=== PATIENT | male | born 1945 | race Caucasian/White ===

== ENCOUNTER 2019-02-01 10:22 | Inpatient (IN) | payer MEDICARE, BC, OTHER ==
--- NOTE | 2019-02-01 10:39 | ED ---
Shortness of Breath - HPI Summary HPI Summary: 74 year-old male with a recent admission for bronchitis/bronchial pneumonia on 6 L oxygen, who presents with continued dyspnea increased oxygen demands. He woke up today with fever at 101.2 F. Patient reports increased pulse (normal is 50-60, pulse was noted to be at 90), and nonproductive cough. Per review of records, patient admitted to the floor, had an echo showing an EF of 60-65% with grade 1 diastolic dysfunction. Was discharged home on 6 L of oxygen with an O2 sat around 86%. Patient discharged on cefuroxime BID. He had negative strep pneumo antigen, Legionella, C. difficile. And no growth on his blood cultures 3 days. - History of Current Complaint Chief Complaint: EDShortnessOfBreath Time Seen by Provider: 02/01/19 10:29 Hx Obtained From: Patient, Medical Records Onset/Duration: Lasting Days - Since yesterday, Still Present - Since being discharged yesterday Current Severity: Mild Dyspnea At: Rest Aggravating Factors: Nothing Alleviating Factors: Nothing Associated Signs & Symptoms: Cough (Nonproductive), Fever - Allergy/Home Medications Allergies/Adverse Reactions: Allergies Allergy/AdvReac Type Severity Reaction Status Date / Time asparagus Allergy Hives Verified 01/28/19 10:19 PMH/Surg Hx/FS Hx/Imm Hx Endocrine/Hematology History: Reports: Hx Diabetes - IDDM Cardiovascular History: Reports: Hx Coronary Artery Disease, Hx Hypercholesterolemia, Hx Hypertension Respiratory History: Reports: Hx Sleep Apnea - HAS NOT BEEN FORMALLY DIAGNOSED- SAYS HE HAS IT Denies: Hx Chronic Obstructive Pulmonary Disease (COPD) GI History: Reports: Hx Ulcer History: Reports: Hx Chronic Renal Failure, Hx Kidney Stones - HISTORY OF MULTIPLE Denies: Hx Dialysis Musculoskeletal History: Reports: Hx Arthritis - KNEES Sensory History: Reports: Hx Contacts or Glasses Denies: Hx Hearing Aid Opthamlomology History: Reports: Hx Contacts or Glasses Neurological History: Reports: Other Neuro Impairments/Disorders - neuropathy in feet Denies: Hx Dementia, Hx Seizures - Cancer History Cancer Type, Location and Year: non-hodgkin's lymphoma (remission) - Surgical History Surgery Procedure, Year, and Place: KIDNEY STONE X 2- [place]RIPSY- [place]- 2014. STENT- [facility]-X 2 [facility]-2014. TURP-[facility]-2014. ORCHIECTOMY - [facility].-2014. KNEE SURGERY-[facility]- [place] Hx Anesthesia Reactions: No - Immunization History Date of Tetanus Vaccine: PT STATES UNSURE Date of Influenza Vaccine: NONE Infectious Disease History: No Infectious Disease History: Denies: Traveled Outside the [place] in Last 30 Days - Family History Known Family History: Positive: Hypertension, Diabetes - Social History Alcohol Use: Rare Hx Substance Use: No Substance Use Type: Reports: None Hx Tobacco Use: Yes Smoking Status (MU): Former Smoker Amount Used/How Often: 1 PPD X 10 YEARS Have You Smoked in the Last Year: No Review of Systems Positive: Fever Positive: Shortness Of Breath, Cough - Nonproductive All Other Systems Reviewed And Are Negative: Yes Physical Exam - Summary Physical Exam Summary: Constitutional: Well-developed, obese Skin: Warm, Dry HENT: Normocephalic; Atraumatic Eyes: Conjunctiva normal Neck: Musculoskeletal ROM normal neck. (-) JVD, (-) Stridor Cardio: Rhythm regular, rate normal, Heart sounds normal; Intact distal pulses; Radial pulses are 2+ and symmetric. (-) Murmur Pulmonary/Chest wall: Increased work of breathing, bilateral rhonchi, poor air entry bilaterally. On 6 L nasal cannula Abd: Soft, (-) tenderness, (-) Distension, (-) Guarding, (-) Rebound Musculoskeletal: (-) Edema Lymph: (-) Cervical adenopathy Neuro: Alert, Oriented x3 Psych: Mood and affect Normal Triage Information Reviewed: Yes Vital Signs On Initial Exam: Initial Vitals Temp Pulse Resp BP Pulse Ox 98.9 F 65 18 147/57 89 02/01/19 10:24 02/01/19 10:24 02/01/19 10:24 02/01/19 10:24 02/01/19 10:24 Vital Signs Reviewed: Yes Diagnostics - Vital Signs Vital Signs Temp Pulse Resp BP Pulse Ox 02/01/19 10:24 98.9 F 65 18 147/57 89 - Laboratory Result Diagrams: 02/01/19 10:51 02/01/19 10:51 Lab Statement: Any lab studies that have been ordered have been reviewed, and results considered in the medical decision making process. - Radiology CXR Radiology Interpretation Completed By: Radiologist Summary of Radiographic Findings: Bronchopneumonia with interval worsening compared with the January 28, [address] Machuca has reviewed this radiology report. - EKG 1040 Cardiac Rate: NL - 63 BPM EKG Rhythm: Sinus Rhythm ST Segment: Normal Ectopy: None EKG Comparison: No Significant Change Summary of EKG Findings: An EKG at 1040 reveals normal sinus rhythm 63 BPM, nml axis, nml intervals. No STEMI. No acute changes. No change from prior taken . Re-Evaluation - Re-Evaluation First Eval Re-Evaluation Time: 11:15 Comment: Discussed results with patient. Patient agrees to be admitted to [facility]. Second Eval Re-Evaluation Time: 11:35 Comment: Patient will be treated with Cefipime and Levaquin and admitted for pneumonia Course/Dx - Course Course Of Treatment: 74 year-old male with a recent admission for bronchitis/ bronchial pneumonia on 6 L oxygen, who presents with continued dyspnea increased oxygen demands. - PE w an obese male with mild dyspnea on 6 L of oxygen satting 89%. Bilateral rhonchi. Concern for worsening pneumonia. Will check a chest x-ray as well as labs. Likely to be readmitted to hospitalist team - Diagnoses Provider Diagnoses: PNA (pneumonia), Respiratory distress, Hypoxia - Physician Notifications Discussed Care of Patient With: Dino Valenzuela Time Discussed With Above Provider: 11:13 Instructed by Provider To: Other - Discussed patient case with Dr. Valenzuela, hospitalist, who recommended proceeding with CTA chest. At 1130, discussed CXR findings with Dr. Valenzuela, who agreed to hold on the CTA chest and proceed with abx. Dr. Valenzuela accepted the patient for admission to [facility]. Discharge - Sign-Out/Discharge Documenting (check all that apply): Patient Departure - Admit Patient Received Moderate/Deep Sedation with Procedure: No - Discharge Plan Condition: Fair Disposition: ADMITTED TO [facility] - Billing Disposition and Condition Condition: FAIR Disposition: Admitted to [facility] - Attestation Statements Document Initiated by Scribe: Yes Documenting Scribe: Andrea Mejia Provider For Whom Scribe is Documenting (Include Credential): Nathanael Machuca MD Scribe Attestation: Andrea Edmondson, scribed for Nathanael Machuca MD on 02/01/19 at 1459. Scribe Documentation Reviewed: Yes Provider Attestation: The documentation as recorded by the scribe, Andrea Mejia accurately reflects the service I personally performed and the decisions made by me, Nathanael Machuca MD Status of Scribe Document: Viewed
[2019-02-01 10:59] LABS: Hematocrit 40 % (42-52); Hemoglobin 13.2 g/dL (14.0-18.0); Mean Corpuscular HGB Conc 33 g/dL (31-36); Mean Corpuscular Hemoglobin 27 pg (27-31); Mean Corpuscular Volume 81 fL (80-94); Mean Platelet Volume 8.3 fL (7.4-10.4); Platelet Count 276 10^3/uL (150-450); Red Blood Count 4.97 10^6 /uL (4.18-5.48); Red Cell Distribution Width 15 % (10-15); White Blood Count 23.6 10^3/uL (3.5-10.8)
[2019-02-01 11:01] LABS: ABS Eosinophils 0.1 10^3/ul (0-0.6); ABS Lymphocytes 0.7 10^3/ul (1.0-4.8); ABS Monocytes 0.9 10^3/ul (0-0.8); ABS Neutrophils 21.9 10^3/ul (1.5-7.7); Eosinophil % 0.2 %; Lymphocyte % 2.8 %
[2019-02-01 11:20] LABS: Albumin 3.4 g/dL (3.2-5.2); BUN/Creatinine Ratio 18.4 (8-20); EGFR African American 56.7 (>60); EGFR Non-African American 46.8 (>60); Globulin 3.4 g/dL (2-4); Potassium 4.4 mmol/L (3.5-5.0); Total Bilirubin 0.8 mg/dL (0.2-1.0); Total Protein 6.8 g/dL (6.4-8.9)
[2019-02-01 11:22] LABS: Troponin I 0.01 ng/mL (<0.04)
[2019-02-01] MEDS ORDERED: Iodixanol* (CONTRAST) 320 MG/ML 100 ML SDV IV ONE (11:24)
[2019-02-01] MEDS ORDERED: Cefepime(*) 2 GM in NS 0.9% 50 ML* 50 ML IVPB ONE (11:34)
[2019-02-01] MEDS ORDERED: Levofloxacin 750 MG IVPREMIX(* 750 MG/150 ML BAG IVPB ONE (11:34)
[2019-02-01] MEDS ORDERED: Dextrose 50% Syringe 50 ML* 25 GM/50 ML SYRINGE IV PUSH PRN (12:16)
[2019-02-01] MEDS ORDERED: Dextrose 50% VIAL 50 ml IV PUSH PRN (12:43)
[2019-02-01] MEDS ORDERED: Cefepime 2 GM in Dextrose(*) 2 GM/50 ML BAG IV SCH (13:00)
[2019-02-01] MEDS ORDERED: Insulin GLARGINE(*) 1 UNITS UNIT SUBCUT SCH (13:00)
--- NOTE | 2019-02-01 13:05 | ADMNOTE ---
Subjective Date of Service: 02/01/19 Interval History: ADMISSION HISTORY AND PHYSICAL EXAM: Allergies Allergy/AdvReac Type Severity Reaction Status Date / Time asparagus Allergy Hives Verified 01/28/19 10:19 Home Medications Medication Instructions Recorded Confirmed Type Hydrochlorothiazide TAB* 25 mg PO QAM 09/04/14 01/28/19 History [Hydrodiuril TAB*] Amlodipine Besylate [Norvasc 10 mg 10 mg PO QAM 05/25/15 01/28/19 History tab] Sodium Bicarbonate (ANTACID)* 650 mg PO SEE INSTRUCTIONS 05/25/15 01/28/19 History Allopurinol TAB* [Zyloprim 100 MG 100 mg PO BID 04/04/18 01/28/19 History TAB*] Losartan Potassium 100 mg PO DAILY 04/04/18 01/28/19 History Simvastatin TAB(NF) [Zocor 20 MG 1 - 2 tab PO DAILY 04/04/18 01/28/19 History (NF)] metFORMIN* [Glucophage 500 MG TAB 500 mg PO BID 04/04/18 01/28/19 History *] Aspirin EC TAB* [Ecotrin EC Low 81 mg PO DAILY 04/10/18 01/28/19 History Dose 81 MG*] Cholecalciferol TAB* [Vitamin D 1,000 unit PO DAILY 01/28/19 01/28/19 History TAB*] L.acidoph,Paracasei, B.lactis 1 each PO DAILY 01/28/19 01/28/19 History [Probiotic] Potassium Chlor TAB* [Klor Con ER 10 meq PO BID 01/28/19 01/28/19 History TAB 10 MEQ*] raNITIdine HCl [Ranitidine HCl] 1 tab PO DAILY 01/28/19 01/28/19 History raNITIdine HCl [Ranitidine HCl] 300 mg PO DAILY 01/28/19 01/28/19 History Insulin GLARGINE(*) [Lantus(*)] 50 units SUBCUT Q12H unit 01/30/19 Rx ceFUROXime TAB(*) [Ceftin TAB 250 500 mg PO BID #14 tab 01/30/19 Rx MG(*)] HPI: The patient was discharged from this hospital 01/30/19 with a dx of pneumonia. He required 6 L O2 by PA. He has had a dry cough persistently. No sweats or chills. Mild diarrhea, started before the first hospitalization. He received 3 doses azithromycin before his prior hospitalization without improvement. He did not improve following his recent discharge. Family History: Findings - DM, heart disease, lung cancer Social History: Findings - Lives with his who is his SDM. Smoked in his 20 's only. No alcohol abuse Past Medical History: Findings - DM, CKD, HTN, lymphoma L arm treated with local RT, GERD, gout, MO Review of Systems - Measurements Intake and Output: Intake and Output Last 24 Hours 01/30/19 01/31/19 02/01/19 02/02/19 06:59 06:59 06:59 06:59 Weight 285 lb - Review of Systems Constitutional Symptoms: Negative: Weight Gain, Weight Loss, Weakness, Fatigue, Fever, Night Sweats, Unexplained Falls, Other Dermatology: Positive: Normal HEENT: Positive: Normal Eyes: Positive: Normal Thyroid: Positive: Normal Pulmonary: Positive: Cough, Shortness of Breath, COPD Cardiology: Positive: Normal Gastroenterology: Positive: Diarrhea Genital - Urinary: Positive: Normal Genitourinary - Male: Negative: Prostatism, Erectile Dysfunction, Family Hx of Prostate Cancer, Other Endocrinology: Positive: Obesity, Diabetes Mellitus Hematologic/Lymphatic: Negative: Anemia, Easy Bruising, Hx Leukemia, Hx Lymphoma, Use of Anticoagulant, Use of Antiplatelet Drugs, Other Psychiatry: Positive: Normal Allergic/Immunologic: Negative: Hx Anaphylaxis, Hx Angioedema, Hx Environmental, Hx Seasonal, Asthma, Hx HIV, Immunocompromise, Swollen Glands LymphNodes, Other Objective Active Medications: Albuterol/Ipratropium (Duoneb (Albuterol 2.5 Mg/Ipratropium 0.5 Mg)) 1 neb INH [id number] AWAKE JANESSA Allopurinol (Zyloprim Tab*) 100 mg PO BID JANESSA Aspirin (Aspirin Ec Tab*) 81 mg PO DAILY JANESSA Cholecalciferol (Vitamin D Tab*) 1,000 units PO DAILY JANESSA Dextrose (Dextrose 50% Vial 50 Ml*) 12.5 ml IV PUSH .FOR FS < 60 - SS PRN PRN Reason: FS < 60 Enoxaparin Sodium (Lovenox(*)) 40 mg SUBCUT Q24H JANESSA Levofloxacin/Dextrose (Levaquin 750 Mg Ivpremix(*)) 750 mg in 150 mls @ 100 mls /hr IVPB ED ONCE ONE Stop: 02/01/19 13:03 Last Admin: 02/01/19 11:53 Dose: 100 mls/hr Cefepime HCl (Maxipime 2 Gm In Dextrose Duplex (*)) 2 gm in 50 mls @ 100 mls/ hr IV Q12H JANESSA Levofloxacin/Dextrose (Levaquin 750 Mg Ivpremix(*)) 750 mg in 150 mls @ 100 mls /hr IVPB Q24H JANESSA; Protocol Insulin Glargine (Lantus(*)) 40 units SUBCUT Q12H JANESSA Insulin Human Lispro (Humalog*) 0 units SUBCUT ACHS JANESSA; Protocol Non-Formulary Medication (Amlodipine Besylate [Norvasc 10 Mg Tab]) 2.5 mg PO QAM JANESSA Non-Formulary Medication (Losartan Potassium [Losartan Potassium]) 50 mg PO DAILY JANESSA Non-Formulary Medication (Ranitidine Hcl [Ranitidine Hcl]) 300 mg PO DAILY JANESSA Vital Signs - 8 hr 02/01/19 02/01/19 02/01/19 10:24 10:48 11:00 Temperature 98.9 F Pulse Rate 65 63 63 Respiratory 18 24 13 Rate Blood Pressure 147/57 131/76 (mmHg) O2 Sat by Pulse 89 90 90 Oximetry 02/01/19 02/01/19 11:18 12:00 Temperature Pulse Rate 60 58 Respiratory 20 29 Rate Blood Pressure 113/46 (mmHg) O2 Sat by Pulse 88 89 Oximetry Oxygen Devices in Use Now: Nasal Cannula Appearance: Alert, partly up on ED stretcher. In fair spirits. Looks comfortable. Eyes: No Scleral Icterus Ears/Nose/Mouth/Throat: Clear Oropharnyx, Mucous Membranes Moist Neck: NL Appearance and Movements; NL JVP, No Thyroid Enlargement, Masses Respiratory: Symmetrical Chest Expansion and Respiratory Effort, Clear to Percussion, - - Barrel-chested. Marked decreased in BS BL. Abdominal: NL Sounds; No Tenderness; No Distention, No Hepatosplenomegaly, - Lymphatic: No Cervical Adenopathy, No Axillary Adenopathy Extremities: No Edema, No Clubbing, Cyanosis, - Skin: No Rash or Ulcers, No Nodules or Sclerosis, - Neurological: Alert and Oriented x 3, NL Sensation Result Diagrams: 02/01/19 10:51 02/01/19 10:51 Assess/Plan/Problems-Billing Assessment: - Patient Problems (1) Pneumonia Current Visit: No Status: Acute Code(s): J18.9 - PNEUMONIA, UNSPECIFIED ORGANISM SNOMED Code(s): 844129876 Comment: Failed macrolide, cephalosporin. Start cefepime and levofloxacin . Blood C&S sent. Add Duoneb although not wheezing, BS very poor. Consider pulmonology consult if no improvement in next 24-48 hrs. (2) Diabetes Current Visit: No Status: Chronic Code(s): E11.9 - TYPE 2 DIABETES MELLITUS WITHOUT COMPLICATIONS SNOMED Code(s): 72094310 Comment: Lantus dose reduced on admission. FS glucose achs with Lispro coverage - hold home metformin (3) Hypertension Current Visit: No Status: Chronic Code(s): I10 - ESSENTIAL (PRIMARY) HYPERTENSION SNOMED Code(s): 17622625 Comment: - continue losartan, amlodipine ar reduced dose on admission. - holding HCTZ (4) Chronic kidney disease Current Visit: No Status: Chronic Code(s): N18.9 - CHRONIC KIDNEY DISEASE, UNSPECIFIED SNOMED Code(s): 631243112 Comment: Repeat BMP 02/02. IV fluids ordered 02/01. (5) EVAN (obstructive sleep apnea) Current Visit: No Status: Chronic Code(s): G47.33 - OBSTRUCTIVE SLEEP APNEA (ADULT) (PEDIATRIC) SNOMED Code(s): 87831458 Comment: Tentative dx, pending official sleep study. (6) Aortic stenosis Current Visit: Yes Status: Acute Code(s): I35.0 - NONRHEUMATIC AORTIC (VALVE ) STENOSIS SNOMED Code(s): 46750286 Comment: Mild to mod on echo 01/28/19. Repeat BNP pending.
[2019-02-01] MEDS ORDERED: NS 0.9% w/ 20 Meq KCL 1000 ML* 1,000 ML IV SCH (14:00)
[2019-02-01] MEDS: Enoxaparin(*) 40 MG/0.4 ML SYR SUBCUT SCH (14:48)
[2019-02-01] MEDS: Insulin LISPRO* 1 UNITS UNIT SUBCUT SCH ×2 (16:34→21:19)
[2019-02-01] MEDS ORDERED: Albuterol/Ipratropium NEB.SOL* Albuterol 2.5 MG/Ipratropium 0.5 MG 3 ML ONE (17:35)
[2019-02-01] MEDS: Albuterol/Ipratropium NEB.SOL* Albuterol 2.5 MG/Ipratropium 0.5 MG 3 ML INH SCH ×3 (17:48→23:02)
[2019-02-01] MEDS: Allopurinol TAB* 100 MG PO SCH (21:19)
[2019-02-01] MEDS ORDERED: Insulin GLARGINE(*) 1 UNITS UNIT SUBCUT ONE (22:00)
[2019-02-02] MEDS: Cefepime 2 GM in Dextrose(*) 2 GM/50 ML BAG IV SCH ×2 (01:56→12:41)
[2019-02-02] MEDS: Albuterol/Ipratropium NEB.SOL* Albuterol 2.5 MG/Ipratropium 0.5 MG 3 ML INH SCH ×4 (03:49→19:34)
[2019-02-02 06:07] LABS: ABS Basophils 0.1 10^3/ul (0-0.2); ABS Eosinophils 0.2 10^3/ul (0-0.6); ABS Lymphocytes 1.1 10^3/ul (1.0-4.8); ABS Monocytes 1.1 10^3/ul (0-0.8); ABS Neutrophils 15.4 10^3/ul (1.5-7.7); Hematocrit 38 % (42-52); Hemoglobin 12.5 g/dL (14.0-18.0); Lymphocyte % 6.4 %; Mean Corpuscular HGB Conc 33 g/dL (31-36); Mean Corpuscular Hemoglobin 27 pg (27-31); Mean Corpuscular Volume 80 fL (80-94); Platelet Count 261 10^3/uL (150-450); Red Blood Count 4.69 10^6 /uL (4.18-5.48); Red Cell Distribution Width 15 % (10-15); White Blood Count 17.8 10^3/uL (3.5-10.8)
[2019-02-02 06:25] LABS: BUN/Creatinine Ratio 20.1 (8-20); EGFR African American 63.1 (>60); EGFR Non-African American 52.1 (>60); Potassium 4.4 mmol/L (3.5-5.0)
[2019-02-02 07:20] LABS: Hepatitis C Antibody Negative (Negative)
[2019-02-02] MEDS: Insulin LISPRO* 1 UNITS UNIT SUBCUT SCH ×4 (08:11→22:11)
[2019-02-02] MEDS: Losartan TAB* 25 MG PO SCH (08:12)
[2019-02-02] MEDS: Insulin GLARGINE(*) 1 UNITS UNIT SUBCUT SCH ×2 (08:12→22:11)
[2019-02-02] MEDS: Famotidine TAB* 20 MG PO SCH ×2 (08:13→22:10)
[2019-02-02] MEDS: Cholecalciferol TAB* 1000 UNITS PO SCH (08:13)
[2019-02-02] MEDS: amLODIPine TAB* 5 MG PO SCH (08:13)
[2019-02-02] MEDS: Aspirin EC TAB* 81 MG TAB.EC PO SCH (08:13)
[2019-02-02] MEDS: Allopurinol TAB* 100 MG PO SCH ×2 (08:13→22:10)
[2019-02-02] MEDS ORDERED: Insulin GLARGINE(*) 1 UNITS UNIT SUBCUT SCH (09:00)
[2019-02-02] MEDS: Enoxaparin(*) 40 MG/0.4 ML SYR SUBCUT SCH (12:40)
[2019-02-02] MEDS: Levofloxacin 750 MG IVPREMIX(* 750 MG/150 ML BAG IVPB SCH (12:46)
--- NOTE | 2019-02-02 17:32 | PN ---
Subjective Date of Service: 02/02/19 Interval History: Nonproductive cough. No chills or seats. Little or no subj change. Family History: Findings - DM, heart disease, lung cancer Social History: Findings - Lives with his who is his SDM. Smoked in his 20 's only. No alcohol abuse Past Medical History: Findings - DM, CKD, HTN, lymphoma L arm treated with local RT, GERD, gout, MO Objective Active Medications: Albuterol/Ipratropium (Duoneb (Albuterol 2.5 Mg/Ipratropium 0.5 Mg)) 1 neb INH [id number] AWAKE [facility] Last Admin: 02/02/19 12:32 Dose: 1 neb Allopurinol (Zyloprim Tab*) 100 mg PO BID [facility] Last Admin: 02/02/19 08:13 Dose: 100 mg Amlodipine Besylate (Norvasc Tab*) 2.5 mg PO QAM [facility] Last Admin: 02/02/19 08:13 Dose: 2.5 mg Aspirin (Aspirin Ec Tab*) 81 mg PO DAILY [facility] Last Admin: 02/02/19 08:13 Dose: 81 mg Cholecalciferol (Vitamin D Tab*) 1,000 units PO DAILY [facility] Last Admin: 02/02/19 08:13 Dose: 1,000 units Dextrose (Dextrose 50% Vial 50 Ml*) 12.5 ml IV PUSH .FOR FS < 60 - SS PRN PRN Reason: FS < 60 Enoxaparin Sodium (Lovenox(*)) 40 mg SUBCUT Q24H [facility] Last Admin: 02/02/19 12:40 Dose: 40 mg Famotidine (Pepcid Tab*) 20 mg PO BID [facility] Last Admin: 02/02/19 08:13 Dose: 20 mg Levofloxacin/Dextrose (Levaquin 750 Mg Ivpremix(*)) 750 mg in 150 mls @ 100 mls /hr IVPB Q24H [facility]; Protocol Last Admin: 02/02/19 12:46 Dose: 100 mls/hr Cefepime HCl (Maxipime 2 Gm In Dextrose Duplex (*)) 2 gm in 50 mls @ 100 mls/ hr IV Q12H [facility] Last Admin: 02/02/19 12:41 Dose: 100 mls/hr Insulin Glargine (Lantus(*)) 45 units SUBCUT Q12H [facility] Last Admin: 02/02/19 08:12 Dose: 45 unit Insulin Human Lispro (Humalog*) 0 units SUBCUT ACHS [facility]; Protocol Last Admin: 02/02/19 12:40 Dose: 2 units Losartan Potassium (Cozaar Tab*) 50 mg PO DAILY [facility] Last Admin: 02/02/19 08:12 Dose: 50 mg Methylprednisolone Sodium Succinate (Solu-Medrol 40 Mg) 40 mg IV Q8H [facility] Pantoprazole Sodium (Protonix Tab*) 40 mg PO DAILY [facility] Vital Signs - 8 hr 02/02/19 02/02/19 02/02/19 11:15 12:35 15:15 Temperature 98.5 F 98.5 F Pulse Rate 64 68 67 Respiratory 24 17 22 Rate Blood Pressure 137/59 152/46 (mmHg) O2 Sat by Pulse 92 93 91 Oximetry Oxygen Devices in Use Now: Nasal Cannula Appearance: Alert, partly up in bed. In fair spirits. Looks comfortable. Eyes: No Scleral Icterus Respiratory: Symmetrical Chest Expansion and Respiratory Effort, Clear to Percussion, - - markedly diminished BS BL Cardiovascular: NL Sounds; No Murmurs; No JVD, RRR, No Edema, - Extremities: No Clubbing, Cyanosis, - - 1+ edema BL Skin: No Rash or Ulcers, No Nodules or Sclerosis, - Neurological: Alert and Oriented x 3, NL Sensation Result Diagrams: 02/02/19 05:48 02/02/19 05:48 Microbiology and Other Data: Microbiology 02/01/19 12:50 Aerobic Blood Culture - Preliminary Blood Venous No Growth Day 1 Anaerobic Blood Culture - Preliminary No Growth Day 1 02/01/19 12:45 Aerobic Blood Culture - Preliminary Blood Venous No Growth Day 1 Anaerobic Blood Culture - Preliminary No Growth Day 1 Assess/Plan/Problems-Billing Assessment: - Patient Problems (1) Pneumonia Current Visit: No Status: Acute Code(s): J18.9 - PNEUMONIA, UNSPECIFIED ORGANISM SNOMED Code(s): 426155251 Comment: Failed macrolide, cephalosporin. Start cefepime and levofloxacin . Blood C&S sent. Add Duoneb although not wheezing, BS very poor. Dr. Chisholm will consult 02/02. (2) Diabetes Current Visit: No Status: Chronic Code(s): E11.9 - TYPE 2 DIABETES MELLITUS WITHOUT COMPLICATIONS SNOMED Code(s): 98460357 Comment: Lantus dose reduced on admission. FS glucose achs with Lispro coverage - hold home metformin (3) Hypertension Current Visit: No Status: Chronic Code(s): I10 - ESSENTIAL (PRIMARY) HYPERTENSION SNOMED Code(s): 98354163 Comment: - continue losartan, amlodipine ar reduced dose on admission. - holding HCTZ (4) Chronic kidney disease Current Visit: No Status: Chronic Code(s): N18.9 - CHRONIC KIDNEY DISEASE, UNSPECIFIED SNOMED Code(s): 233668225 Comment: IV fluids ordered 02/01, BMP improved on 02/02. (5) EVAN (obstructive sleep apnea) Current Visit: No Status: Chronic Code(s): G47.33 - OBSTRUCTIVE SLEEP APNEA (ADULT) (PEDIATRIC) SNOMED Code(s): 31253111 Comment: Tentative dx, pending official sleep study. (6) Aortic stenosis Current Visit: Yes Status: Acute Code(s): I35.0 - NONRHEUMATIC AORTIC (VALVE ) STENOSIS SNOMED Code(s): 28029730 Comment: Mild to mod on echo 01/28/19. Repeat BNP decreased to 65 on 02/02.
--- NOTE | 2019-02-02 17:38 | CONS ---
PULMONARY CONSULTATION REPORT: DATE OF CONSULT: 02/02/19 CONSULTATION REQUESTED BY: Dr. Marcia Fonseca. REASON FOR CONSULT: Evaluation of hypoxemic respiratory failure. HISTORY OF PRESENT ILLNESS: The patient is a 74-year-old morbidly obese male with history of diabetes, hypertension, chronic kidney disease, non-Hodgkin's lymphoma, recent hospitalization for pneumonia. The patient presents for evaluation of hypoxemia. The patient recently was hospitalized for management of pneumonia and was also noted to be hypoxemic at that time. He presented with cough and fever and was noted to be hypoxemic in primary care physician's office. The patient was found to be hypoxemic requiring O2 supplement at almost 10 L, which improved to 6 L prior to his discharge. The patient continued to feel worse and decided to come back to the hospital for further evaluation. The patient denies any known lung problems. He has been having dry cough for the past year, was given inhaler to be taken as needed. He is a nonsmoker with no history of COPD. Denies personal history of asthma. The patient might be having diastolic dysfunction, last admission was also treated for heart failure and fluid overload. Denies lower extremity swelling. He has also reported exposure to chemicals recently. He was working outside helping his friend when his symptoms had started initially. He saw primary care physician in [place] and was prescribed azithromycin; however, he did not take 2 days prior to the past hospitalization. 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 The patient was noted to be hypoxemic to O2 stats in the low 80s. He also had significant dyspnea and hypoxemia with exertion. He denies chills, chest pain, orthopnea, lower extremity swelling, constipation. The patient also has been reporting abdominal pain and diarrhea. Denies recent travel. The patient is currently on O2 at 6 L with O2 sat around 91%. I personally reviewed chest x-ray on admission with lung images from the PET scan from 2016. Chest x-ray suggestive of airspace opacities, which are progressed from most recent chest x-ray. His PET scan in 2016 revealed possible mild fibrotic changes at bases with no other parenchymal abnormalities. The patient is also with wheezing on auscultation. He has been having cough with deep breath. PAST MEDICAL HISTORY: 1. Diabetes. 2. Hypertension. 3. Chronic kidney disease. 4. Morbid obesity. 5. Non-Hodgkin's lymphoma, in remission. 6. Nephrolithiasis. 7. BPH, status post TURP. 8. GERD. 9. Gout. MEDICATIONS: 1. Metformin. 2. Insulin. 3. NovoLog. 4. Losartan. 5. Amlodipine. 6. Hydrochlorothiazide. 7. Aspirin. 8. Allopurinol. 9. Sodium bicarbonate. 10. Simvastatin. 11. Potassium chloride. 12. Ranitidine. 13. Vitamin D. ALLERGIES: ASPARAGUS. FAMILY HISTORY: Multiple family members with diabetes, heart disease. Father with lung cancer and was a smoker. SOCIAL HISTORY: Lives at home with , Bonnie. He smoked briefly in his 20s. He drinks 1 drink per month. No recreational drug abuse. PHYSICAL EXAM: Obese male, in bed, in no apparent distress. Vital Signs: Temperature 98.5, pulse 67 beats per minute, respiratory rate 22 per minute, O2 sat 91% on 6 L, blood pressure 152/46. HEENT: Pupils equal, reactive to light. Mucous membranes moist. Lungs: Diminished air entry bilaterally, wheeze on auscultation. Cardiovascular: S1, S2 present. Abdomen: Obese. Bowel sounds present. Nontender, nondistended. Extremities: Normal range of motion. No edema. Skin: No rash. Neuro: Alert, awake, oriented x3. No focal deficits. DIAGNOSTIC STUDIES/LAB DATA: WBC count 17.8, hemoglobin 12.5, hematocrit 38, platelet count of 261. Blood gas analysis did not reveal any respiratory acidosis, pCO2 was 43 with pH of 7.44 with bicarb of 27. Sodium 136, potassium 4.4, chloride 101, bicarb 27, BUN 27, creatinine 1.34. Chest x-ray as described above in HPI. IMPRESSION AND RECOMMENDATIONS: 74-year-old morbidly obese male without significant smoking history, with chronic dry cough for the past year, history of lymphoma, admitted with worsening shortness of breath and acute hypoxemic respiratory failure. Acute hypoxemic respiratory failure - unclear etiology, suspect inflammatory versus infectious etiology, less likely to be malignant given lymphoma in remission, also lymphangitic spread in differential. Chest x-ray with airspace opacities that have progressed from recent scan. He also has been having fevers, infectious etiology with viral/bacterial pneumonia is a possibility. He was treated with antibiotics recently with no improvement in symptoms and with recurrence. He does report recent exposure to pesticides and chemicals, suspect also reactive airway disease as he also has wheezing on auscultation. Would recommend bronchodilators. Would recommend initiation of steroids which would also help with possible inflammatory component. Will obtain CT scan of the chest without contrast for further evaluation. The patient with possible V/Q mismatch resulting in hypoxemic respiratory failure. I do not suspect chronic obstructive pulmonary disease as he is not retaining any CO2 or does not appear to be a chronic retainer, however, that could have been underestimated given that he has been on sodium bicarbonate for long time. Would start the patient on Solu-Medrol 40 q.8. Will monitor his blood sugar levels closely. He is on DVT prophylaxis. He was also started empirically on antibiotics. Will also recommend nebulizers. Incentive spirometry encouraged. Thank you for allowing me to participate in the care of your patient. Further recommendations pending CT chest. [id number]/CPS #: [id number] SHERI
[2019-02-02] MEDS: methylPREDNISolone SOD 40 MG* 1 ML VIAL IV SCH (17:44)
[2019-02-03] MEDS: Albuterol/Ipratropium NEB.SOL* Albuterol 2.5 MG/Ipratropium 0.5 MG 3 ML INH SCH ×2 (00:54→08:02)
[2019-02-03] MEDS: methylPREDNISolone SOD 40 MG* 1 ML VIAL IV SCH ×3 (01:56→17:19)
[2019-02-03] MEDS: Cefepime 2 GM in Dextrose(*) 2 GM/50 ML BAG IV SCH ×2 (01:57→13:19)
[2019-02-03] MEDS ORDERED: Insulin GLARGINE(*) 1 UNITS UNIT SUBCUT SCH (08:30)
[2019-02-03] MEDS: Insulin LISPRO* 1 UNITS UNIT SUBCUT SCH ×4 (08:38→22:55)
[2019-02-03] MEDS: amLODIPine TAB* 5 MG PO SCH (08:38)
[2019-02-03] MEDS: Famotidine TAB* 20 MG PO SCH ×2 (08:39→22:53)
[2019-02-03] MEDS: Aspirin EC TAB* 81 MG TAB.EC PO SCH (08:39)
[2019-02-03] MEDS: Cholecalciferol TAB* 1000 UNITS PO SCH (08:39)
[2019-02-03] MEDS: Pantoprazole TAB * 40 MG TAB PO SCH (08:40)
[2019-02-03] MEDS: Losartan TAB* 25 MG PO SCH (08:40)
[2019-02-03] MEDS: Allopurinol TAB* 100 MG PO SCH ×2 (08:42→22:53)
[2019-02-03] MEDS: Enoxaparin(*) 40 MG/0.4 ML SYR SUBCUT SCH (13:19)
[2019-02-03] MEDS: Levofloxacin 750 MG IVPREMIX(* 750 MG/150 ML BAG IVPB SCH (13:19)
--- NOTE | 2019-02-03 14:15 | PN ---
Subjective Date of Service: 02/03/19 Interval History: Pt feels better. stated pt had cough x 6 months prior to admission. Down to 4 L Nc today Family History: Findings - DM, heart disease, lung cancer Social History: Findings - Lives with his who is his SDM. Smoked in his 20 's only. No alcohol abuse Past Medical History: Findings - DM, CKD, HTN, lymphoma L arm treated with local RT, GERD, gout, [place] Objective Active Medications: Albuterol/Ipratropium (Duoneb (Albuterol 2.5 Mg/Ipratropium 0.5 Mg)) 1 neb INH [id number] AWAKE PRN PRN Reason: SOB/WHEEZING Allopurinol (Zyloprim Tab*) 100 mg PO BID [facility] Last Admin: 02/03/19 08:42 Dose: 100 mg Amlodipine Besylate (Norvasc Tab*) 2.5 mg PO QAM [facility] Last Admin: 02/03/19 08:38 Dose: 2.5 mg Aspirin (Aspirin Ec Tab*) 81 mg PO DAILY [facility] Last Admin: 02/03/19 08:39 Dose: 81 mg Cholecalciferol (Vitamin D Tab*) 1,000 units PO DAILY [facility] Last Admin: 02/03/19 08:39 Dose: 1,000 units Dextrose (Dextrose 50% Vial 50 Ml*) 12.5 ml IV PUSH .FOR FS < 60 - SS PRN PRN Reason: FS < 60 Enoxaparin Sodium (Lovenox(*)) 40 mg SUBCUT Q24H [facility] Last Admin: 02/03/19 13:19 Dose: 40 mg Famotidine (Pepcid Tab*) 20 mg PO BID [facility] Last Admin: 02/03/19 08:39 Dose: 20 mg Levofloxacin/Dextrose (Levaquin 750 Mg Ivpremix(*)) 750 mg in 150 mls @ 100 mls /hr IVPB Q24H [facility]; Protocol Last Admin: 02/03/19 13:19 Dose: 100 mls/hr Cefepime HCl (Maxipime 2 Gm In Dextrose Duplex (*)) 2 gm in 50 mls @ 100 mls/ hr IV Q12H [facility] Stop: 02/03/19 15:00 Last Admin: 02/03/19 13:19 Dose: 100 mls/hr Cefepime HCl 2 gm/ Sodium (Chloride) 50 mls @ 100 mls/hr IVPB Q12H [facility] Insulin Glargine (Lantus(*)) 55 units SUBCUT Q12H [facility] Last Admin: 02/03/19 08:38 Dose: 55 units Insulin Human Lispro (Humalog*) 0 units SUBCUT ACHS [facility]; Protocol Last Admin: 02/03/19 13:19 Dose: Not Given Losartan Potassium (Cozaar Tab*) 50 mg PO DAILY [facility] Last Admin: 02/03/19 08:40 Dose: 50 mg Methylprednisolone Sodium Succinate (Solu-Medrol 40 Mg) 40 mg IV Q8H [facility] Last Admin: 02/03/19 08:40 Dose: 40 mg Pantoprazole Sodium (Protonix Tab*) 40 mg PO DAILY [facility] Last Admin: 02/03/19 08:40 Dose: 40 mg Vital Signs - 8 hr 02/03/19 02/03/19 07:15 08:06 Temperature 97.4 F Pulse Rate 67 63 Respiratory 18 16 Rate Blood Pressure 147/65 (mmHg) O2 Sat by Pulse 92 92 Oximetry Oxygen Devices in Use Now: Nasal Cannula Appearance: 74 yo M in nAD, aAOx3 Eyes: No Scleral Icterus, PERRLA Ears/Nose/Mouth/Throat: NL Teeth, Lips, Gums, Mucous Membranes Moist Neck: NL Appearance and Movements; NL JVP, Trachea Midline Respiratory: Symmetrical Chest Expansion and Respiratory Effort, - - coarse rhonchi b/l mid and upper lobes Cardiovascular: NL Sounds; No Murmurs; No JVD, RRR Abdominal: NL Sounds; No Tenderness; No Distention Lymphatic: No Cervical Adenopathy Extremities: No Edema, No Clubbing, Cyanosis Skin: No Rash or Ulcers, No Nodules or Sclerosis Neurological: Alert and Oriented x 3, NL Muscle Strength and Tone Result Diagrams: 02/02/19 05:48 02/02/19 05:48 Microbiology and Other Data: Microbiology 02/01/19 12:50 Aerobic Blood Culture - Preliminary Blood Venous No Growth Day 1 Anaerobic Blood Culture - Preliminary No Growth Day 1 02/01/19 12:45 Aerobic Blood Culture - Preliminary Blood Venous No Growth Day 1 Anaerobic Blood Culture - Preliminary No Growth Day 1 Assess/Plan/Problems-Billing Assessment: 74 yo shah with h/o lymphoma in 2016, DM2, CKD, HTN, readmitted for PNA - Patient Problems (1) Pneumonia Comment: Failed macrolide, cephalosporin. Cont cefepime and levofloxacin 02/01. Blood C&S neg cont JANESSA Duoneb although not wheezing. Appreciate Dr. Chisholm' s consult . CT shows likely pulmonary fibrosis-pt educated about the dx. Cont Solu Medrol started 02/02/19 clinically improving (2) Aortic stenosis Comment: Mild to mod on echo 01/28/19. (3) Chronic kidney disease Comment: creat at baseline (4) Diabetes Comment: Lantus dose increased-needed due to increased BG secondary to steroids. FS glucose achs with Lispro coverage - hold home metformin (5) Hypertension Comment: - continue losartan, amlodipine at reduced dose on admission. - holding HCTZ (6) EVAN (obstructive sleep apnea) Comment: Tentative dx, pending official sleep study. (7) DVT prophylaxis Comment: Lovenox subq
[2019-02-03] MEDS: Insulin GLARGINE(*) 1 UNITS UNIT SUBCUT SCH (22:53)
[2019-02-04] MEDS: methylPREDNISolone SOD 40 MG* 1 ML VIAL IV SCH ×3 (01:55→17:46)
[2019-02-04] MEDS ORDERED: Cefepime(*) 2 GM in NS 0.9% 50 ML* 50 ML IVPB SCH (02:00)
[2019-02-04 06:48] LABS: Hematocrit 39 % (42-52); Mean Corpuscular HGB Conc 33 g/dL (31-36); Mean Corpuscular Hemoglobin 27 pg (27-31); Mean Corpuscular Volume 80 fL (80-94); Mean Platelet Volume 8.4 fL (7.4-10.4); Platelet Count 300 10^3/uL (150-450); Red Blood Count 4.87 10^6 /uL (4.18-5.48); Red Cell Distribution Width 15 % (10-15); White Blood Count 22.6 10^3/uL (3.5-10.8)
[2019-02-04 06:53] LABS: BUN/Creatinine Ratio 28.5 (8-20); C Reactive Protein 90.63 mg/L (<8.01); Calcium 9.6 mg/dL (8.6-10.3); EGFR African American 61.5 (>60); EGFR Non-African American 50.8 (>60)
[2019-02-04 07:25] LABS: ABS Basophils 0.1 10^3/ul (0-0.2); ABS Monocytes 0.7 10^3/ul (0-0.8); ABS Neutrophils 20.9 10^3/ul (1.5-7.7); Lymphocyte % 4.3 %
[2019-02-04] MEDS: Insulin GLARGINE(*) 1 UNITS UNIT SUBCUT SCH ×2 (09:00→21:57)
[2019-02-04] MEDS: Insulin LISPRO* 1 UNITS UNIT SUBCUT SCH ×4 (09:02→23:18)
[2019-02-04] MEDS: Pantoprazole TAB * 40 MG TAB PO SCH (09:08)
[2019-02-04] MEDS: Famotidine TAB* 20 MG PO SCH ×2 (09:08→21:58)
[2019-02-04] MEDS: Allopurinol TAB* 100 MG PO SCH ×2 (09:08→21:58)
[2019-02-04] MEDS: amLODIPine TAB* 5 MG PO SCH (09:08)
[2019-02-04] MEDS: Aspirin EC TAB* 81 MG TAB.EC PO SCH (09:08)
[2019-02-04] MEDS: Cholecalciferol TAB* 1000 UNITS PO SCH (09:08)
[2019-02-04] MEDS: Losartan TAB* 25 MG PO SCH (09:08)
--- NOTE | 2019-02-04 12:40 | PN ---
Subjective Date of Service: 02/04/19 Interval History: Pt is feeling better every day, still on 4 L o2 Family History: Findings - DM, heart disease, lung cancer Social History: Findings - Lives with his who is his SDM. Smoked in his 20 's only. No alcohol abuse Past Medical History: Findings - DM, CKD, HTN, lymphoma L arm treated with local RT, GERD, gout, [place] Objective Active Medications: Albuterol/Ipratropium (Duoneb (Albuterol 2.5 Mg/Ipratropium 0.5 Mg)) 1 neb INH [id number] AWAKE PRN PRN Reason: SOB/WHEEZING Allopurinol (Zyloprim Tab*) 100 mg PO BID [facility] Last Admin: 02/04/19 09:08 Dose: 100 mg Amlodipine Besylate (Norvasc Tab*) 2.5 mg PO QAM [facility] Last Admin: 02/04/19 09:08 Dose: 2.5 mg Aspirin (Aspirin Ec Tab*) 81 mg PO DAILY [facility] Last Admin: 02/04/19 09:08 Dose: 81 mg Cholecalciferol (Vitamin D Tab*) 1,000 units PO DAILY [facility] Last Admin: 02/04/19 09:08 Dose: 1,000 units Dextrose (Dextrose 50% Vial 50 Ml*) 12.5 ml IV PUSH .FOR FS < 60 - SS PRN PRN Reason: FS < 60 Enoxaparin Sodium (Lovenox(*)) 40 mg SUBCUT Q24H [facility] Last Admin: 02/03/19 13:19 Dose: 40 mg Famotidine (Pepcid Tab*) 20 mg PO BID [facility] Last Admin: 02/04/19 09:08 Dose: 20 mg Levofloxacin/Dextrose (Levaquin 750 Mg Ivpremix(*)) 750 mg in 150 mls @ 100 mls /hr IVPB Q24H [facility]; Protocol Last Admin: 02/03/19 13:19 Dose: 100 mls/hr Cefepime HCl (Maxipime 2 Gm In Dextrose Duplex (*)) 2 gm in 50 mls @ 100 mls/ hr IV Q12H [facility] Insulin Glargine (Lantus(*)) 65 units SUBCUT Q12H [facility] Last Admin: 02/04/19 09:00 Dose: 65 unit Insulin Human Lispro (Humalog*) 0 units SUBCUT ACHS [facility]; Protocol Last Admin: 02/04/19 09:02 Dose: 6 units Losartan Potassium (Cozaar Tab*) 50 mg PO DAILY [facility] Last Admin: 02/04/19 09:08 Dose: 50 mg Methylprednisolone Sodium Succinate (Solu-Medrol 40 Mg) 40 mg IV Q8H [facility] Last Admin: 02/04/19 09:05 Dose: 40 mg Pantoprazole Sodium (Protonix Tab*) 40 mg PO DAILY [facility] Last Admin: 02/04/19 09:08 Dose: 40 mg Oxygen Devices in Use Now: Nasal Cannula Appearance: 74 yo M in nAD, AAOx3 Eyes: No Scleral Icterus, PERRLA Ears/Nose/Mouth/Throat: NL Teeth, Lips, Gums, Mucous Membranes Moist Neck: NL Appearance and Movements; NL JVP, Trachea Midline Respiratory: Symmetrical Chest Expansion and Respiratory Effort, - - coarse breath sounds b/l Cardiovascular: NL Sounds; No Murmurs; No JVD, RRR Abdominal: NL Sounds; No Tenderness; No Distention Lymphatic: No Cervical Adenopathy Extremities: No Edema Skin: No Rash or Ulcers Neurological: Alert and Oriented x 3, NL Muscle Strength and Tone Result Diagrams: 02/04/19 06:13 02/04/19 06:13 Microbiology and Other Data: Microbiology 02/01/19 12:50 Aerobic Blood Culture - Preliminary Blood Venous No Growth Day 1 Anaerobic Blood Culture - Preliminary No Growth Day 1 02/01/19 12:45 Aerobic Blood Culture - Preliminary Blood Venous No Growth Day 1 Anaerobic Blood Culture - Preliminary No Growth Day 1 Assess/Plan/Problems-Billing Assessment: 74 yo shah with h/o lymphoma in 2016, DM2, CKD, HTN, readmitted for PNA - Patient Problems (1) Pneumonia Comment: Failed macrolide, cephalosporin. Cont cefepime and levofloxacin 02/01. Blood C&S neg cont JANESSA Duoneb although not wheezing. Appreciate Dr. Chisholm' s consult . CT shows likely pulmonary fibrosis-pt educated about the dx. Cont Solu Medrol started 02/02/19 clinically improving. Increase in WBC likely due to steroid use (2) Aortic stenosis Comment: Mild to mod on echo 01/28/19. (3) Chronic kidney disease Comment: creat at baseline (4) Diabetes Comment: Lantus dose increased-needed due to increased BG secondary to steroids. FS glucose achs with Lispro coverage will restart home metformin (5) Hypertension Comment: - continue losartan, amlodipine at reduced dose on admission. - holding HCTZ (6) EVAN (obstructive sleep apnea) Comment: Tentative dx, pending official sleep study. (7) DVT prophylaxis Comment: Lovenox subq (8) LFT elevation Comment: will f/u with CMP in AM Hep C neg Status and Disposition: inpatient
[2019-02-04] MEDS: Albuterol/Ipratropium NEB.SOL* Albuterol 2.5 MG/Ipratropium 0.5 MG 3 ML INH PRN ×2 (12:43→18:58)
[2019-02-04] MEDS: Levofloxacin 750 MG IVPREMIX(* 750 MG/150 ML BAG IVPB SCH (12:52)
[2019-02-04] MEDS: Enoxaparin(*) 40 MG/0.4 ML SYR SUBCUT SCH (12:58)
[2019-02-04] MEDS: Cefepime 2 GM in Dextrose(*) 2 GM/50 ML BAG IV SCH (15:05)
[2019-02-04] MEDS: metFORMIN* 1,000 MG TAB PO SCH (17:46)
[2019-02-04] MEDS ORDERED: Insulin LISPRO* 1 UNITS UNIT SUBCUT ONE (23:15)
[2019-02-05] MEDS: methylPREDNISolone SOD 40 MG* 1 ML VIAL IV SCH ×2 (01:28→09:46)
[2019-02-05] MEDS: Cefepime 2 GM in Dextrose(*) 2 GM/50 ML BAG IV SCH ×2 (01:36→14:58)
[2019-02-05] MEDS ORDERED: Insulin LISPRO* 1 UNITS UNIT SUBCUT ONE (02:00)
[2019-02-05 06:29] LABS: ABS Basophils 0.1 10^3/ul (0-0.2); ABS Lymphocytes 0.8 10^3/ul (1.0-4.8); ABS Monocytes 0.7 10^3/ul (0-0.8); ABS Neutrophils 18.5 10^3/ul (1.5-7.7); Hematocrit 39 % (42-52); Hemoglobin 12.6 g/dL (14.0-18.0); Lymphocyte % 4.2 %; Mean Corpuscular HGB Conc 32 g/dL (31-36); Mean Corpuscular Hemoglobin 26 pg (27-31); Mean Corpuscular Volume 81 fL (80-94); Mean Platelet Volume 8.3 fL (7.4-10.4); Platelet Count 308 10^3/uL (150-450); Red Blood Count 4.82 10^6 /uL (4.18-5.48); Red Cell Distribution Width 15 % (10-15); White Blood Count 20.1 10^3/uL (3.5-10.8)
[2019-02-05 06:45] LABS: Albumin 3.5 g/dL (3.2-5.2); Albumin/Globulin Ratio 1.2 (1-3); BUN/Creatinine Ratio 31.2 (8-20); Calcium 9.2 mg/dL (8.6-10.3); EGFR African American 60.9 (>60); EGFR Non-African American 50.4 (>60); Globulin 2.9 g/dL (2-4); Potassium 4.8 mmol/L (3.5-5.0); Total Bilirubin 0.4 mg/dL (0.2-1.0); Total Protein 6.4 g/dL (6.4-8.9)
--- NOTE | 2019-02-05 08:02 | PN ---
Subjective Date of Service: 02/05/19 Interval History: Pt feeling well. Breathing feels comfortable off oxygen. Denies chest pain, SOB , fever/chills, abd pain, nausea. Family History: Findings - DM, heart disease, lung cancer Social History: Findings - Lives with his who is his SDM. Smoked in his 20 's only. No alcohol abuse Past Medical History: Findings - DM, CKD, HTN, lymphoma L arm treated with local RT, GERD, gout, [place] Objective Active Medications: Albuterol/Ipratropium (Duoneb (Albuterol 2.5 Mg/Ipratropium 0.5 Mg)) 1 neb INH [id number] AWAKE PRN PRN Reason: SOB/WHEEZING Last Admin: 02/04/19 18:58 Dose: 1 neb Allopurinol (Zyloprim Tab*) 100 mg PO BID [facility] Last Admin: 02/04/19 21:58 Dose: 100 mg Amlodipine Besylate (Norvasc Tab*) 2.5 mg PO QAM [facility] Last Admin: 02/04/19 09:08 Dose: 2.5 mg Aspirin (Aspirin Ec Tab*) 81 mg PO DAILY [facility] Last Admin: 02/04/19 09:08 Dose: 81 mg Cholecalciferol (Vitamin D Tab*) 1,000 units PO DAILY [facility] Last Admin: 02/04/19 09:08 Dose: 1,000 units Dextrose (Dextrose 50% Vial 50 Ml*) 12.5 ml IV PUSH .FOR FS < 60 - SS PRN PRN Reason: FS < 60 Enoxaparin Sodium (Lovenox(*)) 40 mg SUBCUT Q24H [facility] Last Admin: 02/04/19 12:58 Dose: 40 mg Famotidine (Pepcid Tab*) 20 mg PO BID [facility] Last Admin: 02/04/19 21:58 Dose: 20 mg Levofloxacin/Dextrose (Levaquin 750 Mg Ivpremix(*)) 750 mg in 150 mls @ 100 mls /hr IVPB Q24H [facility]; Protocol Last Admin: 02/04/19 12:52 Dose: 100 mls/hr Cefepime HCl (Maxipime 2 Gm In Dextrose Duplex (*)) 2 gm in 50 mls @ 100 mls/ hr IV Q12H [facility] Last Admin: 02/05/19 01:36 Dose: 100 mls/hr Insulin Glargine (Lantus(*)) 65 units SUBCUT Q12H [facility] Last Admin: 02/04/19 21:57 Dose: 65 unit Insulin Human Lispro (Humalog*) 0 units SUBCUT ACHS [facility]; Protocol Last Admin: 02/04/19 23:18 Dose: Not Given Losartan Potassium (Cozaar Tab*) 50 mg PO DAILY [facility] Last Admin: 02/04/19 09:08 Dose: 50 mg Metformin HCl (Glucophage*) 500 mg PO DAILY [facility] Metformin HCl (Glucophage*) 1,000 mg PO 1700 [facility] Last Admin: 02/04/19 17:46 Dose: 1,000 mg Methylprednisolone Sodium Succinate (Solu-Medrol 40 Mg) 40 mg IV Q8H [facility] Last Admin: 02/05/19 01:28 Dose: 40 mg Pantoprazole Sodium (Protonix Tab*) 40 mg PO DAILY [facility] Last Admin: 02/04/19 09:08 Dose: 40 mg Vital Signs - 8 hr 02/05/19 03:28 Temperature 97.7 F Pulse Rate 60 Respiratory 20 Rate Blood Pressure 152/62 (mmHg) O2 Sat by Pulse 97 Oximetry Oxygen Devices in Use Now: None Appearance: Obese, elderly white male, laying in bed appearing in NAD Eyes: No Scleral Icterus, PERRLA Ears/Nose/Mouth/Throat: Mucous Membranes Moist Neck: NL Appearance and Movements; NL JVP Respiratory: Symmetrical Chest Expansion and Respiratory Effort, Clear to Auscultation Cardiovascular: NL Sounds; No Murmurs; No JVD, RRR Abdominal: - - abd soft, nontender, nondistended Extremities: No Edema, No Clubbing, Cyanosis Skin: No Rash or Ulcers Neurological: Alert and Oriented x 3, NL Muscle Strength and Tone Result Diagrams: 02/05/19 06:00 02/05/19 06:00 Microbiology and Other Data: Microbiology 02/01/19 12:50 Aerobic Blood Culture - Preliminary Blood Venous No Growth Day 1 Anaerobic Blood Culture - Preliminary No Growth Day 1 02/01/19 12:45 Aerobic Blood Culture - Preliminary Blood Venous No Growth Day 1 Anaerobic Blood Culture - Preliminary No Growth Day 1 Assess/Plan/Problems-Billing Assessment: 74 yo shah with h/o lymphoma in 2016, DM2, CKD, HTN, readmitted for PNA - Patient Problems (1) Pneumonia Current Visit: No Status: Acute Code(s): J18.9 - PNEUMONIA, UNSPECIFIED ORGANISM SNOMED Code(s): 642796177 Comment: -recent admission for PNA and discharged 01/30/19 -presented again with worsening symptoms, failed macrolide and cephalosporin -Cont cefepime and levofloxacin -Blood C&S neg -cont JANESSA Duoneb although not wheezing -CT shows likely pulmonary fibrosis, patient aware -Appreciate Dr. Chisholm's consult: ALETHEA and CCP ordered per her recommendation which are both negative -Solu Medrol started 02/02/19, switching to po prednisone 100 mg for tomorrow AM -clinically improving, continued leukocytosis likely due to steroid use and now downtrending today -oxygen saturation on RA was borderline with ambulation today, will likely be ready for d/c tomorrow (2) LFT elevation Current Visit: Yes Status: Acute Code(s): R94.5 - ABNORMAL RESULTS OF LIVER FUNCTION STUDIES SNOMED Code(s): 932591377 Comment: -will continue to follow -possibly related to antibiotics -Hep C neg -will need f/u with PCP at discharge (3) Chronic kidney disease Current Visit: No Status: Chronic Code(s): N18.9 - CHRONIC KIDNEY DISEASE, UNSPECIFIED SNOMED Code(s): 771882134 Comment: - creat at baseline (4) Hypertension Current Visit: No Status: Chronic Code(s): I10 - ESSENTIAL (PRIMARY) HYPERTENSION SNOMED Code(s): 60798307 Comment: - SBP 150s-160s - returning losartan and amlodipine to home dose - holding HCTZ due to GFR (5) Aortic stenosis Current Visit: Yes Status: Acute Code(s): I35.0 - NONRHEUMATIC AORTIC (VALVE ) STENOSIS SNOMED Code(s): 22059248 Comment: -Mild to mod on echo 01/28/19. (6) Diabetes Current Visit: No Status: Chronic Code(s): E11.9 - TYPE 2 DIABETES MELLITUS WITHOUT COMPLICATIONS SNOMED Code(s): 86902151 Comment: -Lantus dose increased due to increased BG secondary to steroids. -FS glucose achs with Lispro coverage -home metformin dose increased to total 1500 mg daily (was previoulsy 500 BID) (7) (HFpEF) heart failure with preserved ejection fraction Current Visit: Yes Status: Acute Code(s): I50.30 - UNSPECIFIED DIASTOLIC ( CONGESTIVE) HEART FAILURE SNOMED Code(s): 142812884 Comment: -grade 1 diastolic dysfunction on echo 01/28/19 (8) DVT prophylaxis Current Visit: No Status: Acute Code(s): IVM0907 - SNOMED Code(s): 559482065 Comment: -Lovenox (9) Full code status Current Visit: No Status: Acute Code(s): Z78.9 - OTHER SPECIFIED HEALTH STATUS SNOMED Code(s): 459165709 Status and Disposition: inpatient
[2019-02-05] MEDS: Insulin LISPRO* 1 UNITS UNIT SUBCUT SCH ×4 (09:40→20:53)
[2019-02-05] MEDS: Insulin GLARGINE(*) 1 UNITS UNIT SUBCUT SCH ×2 (09:41→20:52)
[2019-02-05] MEDS: Albuterol/Ipratropium NEB.SOL* Albuterol 2.5 MG/Ipratropium 0.5 MG 3 ML INH PRN (09:43)
[2019-02-05] MEDS: metFORMIN* 500 MG TAB PO SCH (09:43)
[2019-02-05] MEDS: Famotidine TAB* 20 MG PO SCH ×2 (09:44→20:54)
[2019-02-05] MEDS: Allopurinol TAB* 100 MG PO SCH ×2 (09:45→20:53)
[2019-02-05] MEDS: Cholecalciferol TAB* 1000 UNITS PO SCH (09:45)
[2019-02-05] MEDS: Losartan TAB* 25 MG PO SCH (09:45)
[2019-02-05] MEDS: amLODIPine TAB* 5 MG PO SCH (09:46)
[2019-02-05] MEDS: Pantoprazole TAB * 40 MG TAB PO SCH (09:46)
[2019-02-05] MEDS: Aspirin EC TAB* 81 MG TAB.EC PO SCH (09:46)
[2019-02-05] MEDS: Levofloxacin 750 MG IVPREMIX(* 750 MG/150 ML BAG IVPB SCH (13:00)
[2019-02-05] MEDS: Enoxaparin(*) 40 MG/0.4 ML SYR SUBCUT SCH (13:01)
[2019-02-05] MEDS: guaiFENesin ER TAB 600 MG PO SCH ×2 (13:04→20:54)
[2019-02-05] MEDS: metFORMIN* 1,000 MG TAB PO SCH (17:07)
[2019-02-06] MEDS: Cefepime 2 GM in Dextrose(*) 2 GM/50 ML BAG IV SCH ×2 (01:47→14:21)
[2019-02-06 07:07] LABS: Hematocrit 43 % (42-52); Hemoglobin 14.1 g/dL (14.0-18.0); Mean Corpuscular HGB Conc 33 g/dL (31-36); Mean Corpuscular Hemoglobin 26 pg (27-31); Mean Corpuscular Volume 80 fL (80-94); Mean Platelet Volume 8.2 fL (7.4-10.4); Platelet Count 369 10^3/uL (150-450); Red Blood Count 5.37 10^6 /uL (4.18-5.48); Red Cell Distribution Width 15 % (10-15); White Blood Count 22.8 10^3/uL (3.5-10.8)
[2019-02-06 07:24] LABS: Albumin 3.6 g/dL (3.2-5.2); Albumin/Globulin Ratio 1.2 (1-3); BUN/Creatinine Ratio 30.8 (8-20); Calcium 8.6 mg/dL (8.6-10.3); EGFR African American 63.6 (>60); EGFR Non-African American 52.6 (>60); Globulin 2.9 g/dL (2-4); Potassium 4.2 mmol/L (3.5-5.0); Total Bilirubin 0.4 mg/dL (0.2-1.0); Total Protein 6.5 g/dL (6.4-8.9)
[2019-02-06] MEDS: Insulin LISPRO* 1 UNITS UNIT SUBCUT SCH ×2 (07:50→12:20)
[2019-02-06 08:12] LABS: ABS Basophils 0.1 10^3/ul (0-0.2); ABS Eosinophils 0.1 10^3/ul (0-0.6); ABS Lymphocytes 2.1 10^3/ul (1.0-4.8); ABS Monocytes 1.3 10^3/ul (0-0.8); ABS Neutrophils 19.3 10^3/ul (1.5-7.7); Eosinophil % 0.2 %; Lymphocyte % 9.1 %
[2019-02-06] MEDS ORDERED: amLODIPine TAB* 5 MG PO SCH (09:00)
[2019-02-06] MEDS ORDERED: Losartan TAB* 25 MG PO SCH (09:00)
[2019-02-06] MEDS ORDERED: predniSONE TAB* 50 MG PO SCH (09:00)
[2019-02-06] MEDS: Cholecalciferol TAB* 1000 UNITS PO SCH (10:05)
[2019-02-06] MEDS: Famotidine TAB* 20 MG PO SCH (10:06)
[2019-02-06] MEDS: Aspirin EC TAB* 81 MG TAB.EC PO SCH (10:07)
[2019-02-06] MEDS: Allopurinol TAB* 100 MG PO SCH (10:07)
[2019-02-06] MEDS: metFORMIN* 500 MG TAB PO SCH (10:07)
[2019-02-06] MEDS: Pantoprazole TAB * 40 MG TAB PO SCH (10:07)
[2019-02-06] MEDS: guaiFENesin ER TAB 600 MG PO SCH (10:07)
[2019-02-06] MEDS: Insulin GLARGINE(*) 1 UNITS UNIT SUBCUT SCH (10:28)
[2019-02-06] MEDS: Levofloxacin 750 MG IVPREMIX(* 750 MG/150 ML BAG IVPB SCH (12:20)
[2019-02-06] MEDS: Enoxaparin(*) 40 MG/0.4 ML SYR SUBCUT SCH (12:21)
[2019-02-06] MEDS ORDERED: Insulin GLARGINE(*) 1 UNITS UNIT SUBCUT ONE (13:41)
[2019-02-06 16:17] VITALS: BP 161/64
--- NOTE | 2019-02-06 22:55 | DS ---
Amended report to enter cosigning physician. CC: Dr. Berenice Horner* MEDICINE DISCHARGE SUMMARY: DATE OF ADMISSION: 02/01/19 DATE OF DISCHARGE: 02/06/19 PROVIDER: Kevin Emery NP. ATTENDING PHYSICIAN: Dr. Saroj Zaman* (dictated by Kevin Emery NP). PRIMARY CARE PROVIDER: Dr. Berenice Horner. CONSULTING PROVIDER: Dr. Emily Chisholm. PRIMARY DISCHARGE DIAGNOSES: 1. Pneumonia. 2. Acute hypoxic respiratory failure, now resolved. 3. Liver function tests elevation. 4. Pulmonary fibrosis. SECONDARY DISCHARGE DIAGNOSES: 1. Chronic kidney disease. 2. Hypertension. 3. Aortic stenosis. 4. Type 2 diabetes. 5. Heart failure with preserved ejection fraction. 6. Lymphoma. 7. Gastroesophageal reflux disease. 8. Gout. MEDICATIONS AT DISCHARGE: 1. Ranitidine 300 mg daily. 2. Sodium bicarbonate 650 mg 1 tablet in the a.m. and 2 tablets in the p.m. 3. Simvastatin 20 mg daily. 4. Potassium chloride 10 mEq b.i.d. 5. Losartan 100 mg daily. 6. Probiotics 1 tab daily. 7. Cholecalciferol 1000 units daily. 8. Aspirin 81 mg daily. 9. Amlodipine 10 mg daily. 10. Allopurinol 100 mg b.i.d. 11. Prednisone taper 100 mg x3 additional days, then 80 mg x4 days, then 60 mg x4 days, then 40 mg x4 days, then 20 mg x4 days, and 10 mg x4 days. 12. Metformin 500 mg in the a.m., 1000 mg in the p.m. 13. Guaifenesin ER 1200 mg b.i.d. x7 additional days. 14. Pantoprazole 40 mg daily as GI prophylaxis. 15. Insulin glargine 55 units subcu q.12. 16. Albuterol nebulizer 2.5 mg inhaled q.4 hours p.r.n. Please note new medications include: 1. Albuterol nebulizer. 2. Lantus increased to 55 units q.12. 3. Protonix. 4. Prednisone. 5. Guaifenesin ER. DIAGNOSTIC TESTING: CT of the chest shows a constellation of findings most consistent with interstitial fibrosis and superimposed bronchopneumonia, mild mediastinal lymphadenopathy, and cholelithiasis. HOSPITAL COURSE: For full details, please refer to the H and P provided by Dr. Dino Valenzuela. In summary, Mr. Kirk is a 74-year-old gentleman, who was admitted after previous admission and discharge from the hospital on 01/30/19. He was treated with azithromycin and cephalosporin but did not respond to this appropriately and presented back to the ER with worsening symptoms. He was started on cefepime and Levaquin. Blood cultures are drawn and sent. He was seen in consultation by Dr. Chisholm, who recommended bronchodilators and administration of steroids. He was recommended that he continue on nighttime oxygen with concern for sleep apnea. During the course of his stay, he responded appropriately to his current medication regimen. He received 5 days of Levaquin 750 mg as well as cefepime. He was markedly improved with no oxygen requirement prior to discharge and has been afebrile for over 48 hours. He is able to oxygenate appropriately with both activity and at rest and during sleep. He was not sent home on any antibiotics, as he has completed his 5 days of Levaquin and then had appropriately responded. He is receiving a prednisone taper and was tapered down to 100 mg prior to discharge and will be continued on the taper every 4 days [address] Chisholm's consult recommended an ALETHEA and CCP, these are both negative during his admission when checked. Mr. Kirk did have a persistent leukocytosis, which has felt to be due to steroids. He is also recommended to follow up as an outpatient next week with the followup CBC and LFTs. He did have LFT elevation that was possibly related to the antibiotics. He was hep C negative. He should have further followup with his PCP regarding these labs. In regards to his diabetes, his Lantus dose was bumped to 65 units b.i.d. here in the hospital, but he was noted to have some low blood sugars on the day of discharge. He was given a reduced dose of Lantus and his discharge dose was changed to 55 units b.i.d. He is expected to have high blood sugars due to his high steroid dosing, but this should improve as the steroids are tapered down. He was advised to call his PCP with his blood sugar result at home and he feels comfortable checking his blood sugar and calculating his insulin needs based on his carbohydrate intake. On the day of discharge, the patient is in stable condition, requiring no oxygen , ambulatory, and eager for discharge to home. He denies any acute complaints. PHYSICAL EXAMINATION: Vitals Signs: Temperature 97.4, pulse rate 71, respiratory rate 16, blood pressure 161/64, and oxygen saturation is 93% on room air. HEENT: Head is atraumatic, normocephalic. Pupils are equal and round. Extraocular movements are intact. Oral mucosa is moist. Neck is supple. Lungs are clear to auscultation. Cardiac: Normal S1, S2 heart sounds. Regular rate and rhythm. Abdomen is soft, nontender, nondistended with normoactive bowel sounds. Skin: Grossly intact. Extremities: Without edema, clubbing or cyanosis. Neuro: He is alert and oriented x3. No focal deficits. Cranial nerves II through XII are grossly intact. OUTPATIENT FOLLOWUP NEEDS: Again, he will need to follow up with Dr. Chisholm earliest available appointment what he has scheduled for February. There were no earlier appointments when he did call the office. He should follow up with Dr. Horner within 7 to 10 days. He is also to receive home health care service. Again, he is advised to have followup labs next week for CBC and LFTs, and these results will be sent to Dr. Horner. DIET: Diabetic diet. ACTIVITY: As tolerated. CONDITION: Stable. DISPOSITION: To home. TIME SPENT: Time spent on this discharge was approximately 40 minutes. This is only a brief summary of the patient's hospital course of stay. For full details , please refer to the full medical record. If you have any questions or need further assistance, please feel free to contact me at [phone]. KEVIN EMERY NP [id number]/CPS #: [id number] SHERI
== END 2019-02-06 16:45 | disposition home or self-care (01) | DRG 193 ==
LOC: ED 10:22 → MED 12:15
PROVIDERS: ADMIT Internal Medicine; ATTEND Internal Medicine
DX: J18.9 Pneumonia, unspecified organism (principal); J96.01 Acute respiratory failure with hypoxia; I13.0 Hypertensive heart and chronic kidney disease with heart failure and stage 1 through stage 4 chronic kidney disease, or unspecified chronic kidney disease; I50.30 Unspecified diastolic (congestive) heart failure; E11.22 Type 2 diabetes mellitus with diabetic chronic kidney disease; N18.9 Chronic kidney disease, unspecified; E66.01 Morbid (severe) obesity due to excess calories; N40.0 Benign prostatic hyperplasia without lower urinary tract symptoms; K21.9 Gastro-esophageal reflux disease without esophagitis; M10.9 Gout, unspecified; G47.33 Obstructive sleep apnea (adult) (pediatric); I35.0 Nonrheumatic aortic (valve) stenosis; E11.65 Type 2 diabetes mellitus with hyperglycemia; R79.89 Other specified abnormal findings of blood chemistry; I25.10 Atherosclerotic heart disease of native coronary artery without angina pectoris; E78.00 Pure hypercholesterolemia, unspecified; M17.0 Bilateral primary osteoarthritis of knee; J84.10 Pulmonary fibrosis, unspecified; Z79.82 Long term (current) use of aspirin; Z68.42 Body mass index [BMI] 45.0-49.9, adult; Z85.72 Personal history of non-Hodgkin lymphomas; Z87.442 Personal history of urinary calculi; Z88.8 Allergy status to other drugs, medicaments and biological substances; Z83.3 Family history of diabetes mellitus; Z82.49 Family history of ischemic heart disease and other diseases of the circulatory system; Z80.1 Family history of malignant neoplasm of trachea, bronchus and lung; Z81.2 Family history of tobacco abuse and dependence; Z87.891 Personal history of nicotine dependence; Z72.89 Other problems related to lifestyle; Z92.3 Personal history of irradiation; Z79.4 Long term (current) use of insulin
CPT/HCPCS: 36415; 71046; 71250; 80048; 80053; 82803; 82947; 83605; 83880; 84484; 85025; 86038; 86140; 86200; 86431; 86803; 87040; 93005; 94640; 99284; A9270-GY; J0692; J1650; J2920; J7512